=== PATIENT | male | born 1990 | race Caucasian/White ===

== ENCOUNTER 2020-03-24 19:23 | Outpatient (CLI) | payer MEDICAID | END 2020-03-24 19:24 | disposition home or self-care (01) | LOC: COV 19:23 | PROVIDERS: ATTEND Family Medicine | DX: R50.9 Fever, unspecified (principal); R19.7 Diarrhea, unspecified | CPT/HCPCS: 81599 ==

== ENCOUNTER 2024-05-05 10:24 | Emergency (ER) | payer MEDICAID ==
[2024-05-05 10:48] VITALS: BP 148/93; O2SAT 100
--- NOTE | 2024-05-05 11:06 | ED Physician Documentation ---
PD HPI HEENT - Stated complaint Stated Complaint: LIGHT HEADED, CHILLS - Chief complaint Chief Complaint: Heent - History obtained from History obtained from: Patient - Additional information Additional information: He has not seen a dentist in about 5 years. He has a carious tooth on the right jaw that exploded with pus a few days ago but feels "off" with chills and lightheadedness. No fevers. PD PAST MEDICAL HISTORY - Past Medical History Past Medical History: No - Past Surgical History General: Appendectomy Ortho: Other - Present Medications Home Medications: Ambulatory Orders Medication Instructions Recorded Confirmed Amox/Clav 875/125 [Augmentin] 1 each PO Q12H #20 tablet 05/05/24 - Allergies Allergies/Adverse Reactions: Allergies Allergy/AdvReac Type Severity Reaction Status Date / Time No Known Drug Allergies Allergy Verified 05/05/24 10:42 - Social History Does the pt smoke?: No Smoking Status: Never smoker Does the pt drink ETOH?: Yes Does the pt have substance abuse?: No - Immunizations Immunizations are current?: Yes - POLST Patient has POLST: No PD ED PE NORMAL - Vitals Vital signs reviewed: Yes - General General: Alert and oriented X 3, No acute distress - HEENT HEENT: Other (There is a right mandibular molar that is carious down to the gumline with some tenderness. No facial cellulitis, no sublingual edema or trismus.) - Neck Neck: Supple, no meningeal sign, No bony TTP - Neuro Neuro: Alert and oriented X 3 Results - Vitals Vitals: Vital Signs - 24 hr 05/05/24 10:39 Temperature 36.6 C Heart Rate 86 Respiratory 20 Rate Blood Pressure 148/93 H O2 Saturation 100 Oxygen O2 Source Room air PD Medical Decision Making - ED course ED course: The patient and family were counseled as to the diagnosis and need for follow- up. I counseled the patient with regard to signs and symptoms that would necessitate an urgent reevaluation in the emergency department. They understand they are welcome to return at any time if worse or if not improving as expected. This document was made in part using voice recognition software. While efforts are made to proofread this documents, sound alike and grammatical errors may occur. Departure - Departure Disposition: 01 Home, Self Care Clinical Impression: Dental abscess Condition: Good Record reviewed to determine appropriate education?: Yes Instructions: ED Abscess Dental Follow-Up: TESSIE SUNSHINE [Physician No Access] - Prescriptions: Amox/Clav 875/125 [Augmentin] 1 each PO Q12H #20 tablet Comments: I sent your prescription electronically to the [facility] in [place]. As discussed, I probably should see a dental surgeon given the severity of that tooth decay. 1 is listed on this form. Return for new or worsening symptoms. Forms: PCP List
== END 2024-05-05 11:09 | disposition home or self-care (01) ==
LOC: ED 10:24
DX: K04.7 Periapical abscess without sinus (principal)
CPT/HCPCS: 99282; 99283

== ENCOUNTER 2024-07-11 21:17 | Outpatient (CLI) | payer MEDICAID | END 2024-07-11 23:59 | disposition EMS.NT | LOC: EMS 21:17 | DX: R20.2 Paresthesia of skin (principal); R09.89 Other specified symptoms and signs involving the circulatory and respiratory systems; F41.9 Anxiety disorder, unspecified ==